=== PATIENT | male | born 1960 | race Caucasian/White ===

== ENCOUNTER 2021-08-25 01:37 | Emergency (ER) | payer OTHER, SELFPAY ==
[2021-08-25 01:44] VITALS: BMI 26.9
[2021-08-25 01:51] VITALS: BP 174/99; PULSE 71; RESP 16; O2SAT 96
--- NOTE | 2021-08-25 02:04 | ECG_ITS ---
[facility] Test Date: 2021-08-25 Pat Name: Ean Arce Department: Room: Gender: Male [employer]: : 1960 Requested By: Kimani Tolbert Order Number: [id number] Jose MD: Jt Barr M.D. Measurements Intervals [place] Rate: 67 P: 52 DC: 144 QRS: 23 QRSD: 94 T: 59 QT: 388 QTc: 411 Interpretive Statements SINUS RHYTHM No previous ECG available for comparison Electronically Signed On 08-25-2021 22:09:02 CDT by Jt Barr M.D. [id number]
--- NOTE | 2021-08-25 02:09 | CTR_ITS ---
PROCEDURE INFORMATION: Exam: CT Head Without Contrast Exam date and time: 08/25/2021 2:36 AM Age: 60 years old Clinical indication: Injury or trauma; Blunt trauma (contusions or hematomas); Without loss of consciousness; Injury details: Fall from 12 ft TECHNIQUE: Imaging protocol: Computed tomography of the head without contrast. Radiation optimization: All CT scans at this facility use at least one of these dose optimization techniques: automated exposure control; mA and/or kV adjustment per patient size (includes targeted exams where dose is matched to clinical indication); or iterative reconstruction. COMPARISON: No relevant prior studies available. RADIATION DOSE METRICS: Total DLP (mGy-cm): 875.97 FINDINGS: Brain: Normal. No hemorrhage. Unremarkable white matter. No mass effect. Cerebral ventricles: No ventriculomegaly. Paranasal sinuses: Visualized sinuses are unremarkable. No fluid levels. Mastoid air cells: Visualized mastoid air cells are well aerated. Bones/joints: Unremarkable. No acute fracture. Soft tissues: Unremarkable. CT/CT head wo con* [id number] IMPRESSION: No acute intracranial abnormality.
--- NOTE | 2021-08-25 02:09 | CTR_ITS ---
PROCEDURE INFORMATION: Exam: CT Chest With Contrast; Diagnostic Exam date and time: 08/25/2021 2:43 AM Age: 60 years old Clinical indication: Injury or trauma; Fall; Generalized; Blunt trauma (contusions or hematomas); Prior surgery; Surgery date: 6+ months; Surgery type: Hernia; Additional info: Fall 12 ft chest and belly pain TECHNIQUE: Imaging protocol: Diagnostic computed tomography of the chest with contrast. Radiation optimization: All CT scans at this facility use at least one of these dose optimization techniques: automated exposure control; mA and/or kV adjustment per patient size (includes targeted exams where dose is matched to clinical indication); or iterative reconstruction. Contrast material: OMNI 300; Contrast volume: 95 ml; Contrast route: INTRAVENOUS (IV); COMPARISON: CT cervical spin wo con* [id number] 08/25/2021 2:39 AM RADIATION DOSE METRICS: Total DLP (mGy-cm): 1785.99 FINDINGS: Lungs: Small calcified granuloma in the right middle lobe laterally. Mild patchy atelectasis in the right lower lobe and left lower lobe. Pleural spaces: No pneumothorax or pleural effusion. Heart: Heart size within normal limits. Lymph nodes: Calcified left paratracheal and subcarinal lymph nodes, consistent with longstanding granulomatous disease. Aorta: No thoracic aortic aneurysm identified. Bones/joints: Mild degenerative changes of the thoracic spine. Soft tissues: Unremarkable. PROCEDURE INFORMATION: Exam: CT Abdomen And Pelvis With Contrast Exam date and time: 08/25/2021 2:43 AM Age: 60 years old Clinical indication: Injury or trauma; Fall; Generalized; Blunt trauma (contusions or hematomas); Prior surgery; Surgery date: 6+ months; Surgery type: Hernia; Additional info: Fall 12 ft chest and belly pain TECHNIQUE: Imaging protocol: Computed tomography of the abdomen and pelvis with contrast. Radiation optimization: All CT scans at this facility use at least one of these dose optimization techniques: automated exposure control; mA and/or kV adjustment per patient size (includes targeted exams where dose is matched to clinical indication); or iterative reconstruction. Contrast material: OMNI 300; Contrast volume: 95 ml; Contrast route: INTRAVENOUS (IV); COMPARISON: CT cervical spin wo con* [id number] 08/25/2021 2:39 AM RADIATION DOSE METRICS: Total DLP (mGy-cm): 1785.99 FINDINGS: Liver: Unremarkable. Gallbladder and bile ducts: Unremarkable. Pancreas: The pancreatic tail and a large portion of the pancreatic body are absent. Spleen: Unremarkable. Adrenal glands: Unremarkable. Kidneys and ureters: Several cysts in the right kidney, largest 6 cm in the lower pole. Several cysts in the left kidney, largest 11.8 cm in the lower pole. No hydronephrosis on either side. Stomach and bowel: No bowel obstruction identified. Scattered colonic diverticula without identified diverticulitis. Appendix: A normal-appearing appendix is seen in the right lower quadrant. Intraperitoneal space: No free intraperitoneal air identified. Mild hemorrhagic free fluid in the pelvis. Moderate infiltrative hemorrhage in the mesentery in the right upper quadrant. Arteries: Unremarkable. No abdominal aortic aneurysm. Lymph nodes: Unremarkable. Urinary bladder: Unremarkable as visualized. Reproductive: Unremarkable as visualized. Bones/joints: Bilateral L5 pars interarticularis defects noted. Grade 2 anterolisthesis of L5 on S1. Marked degenerative disc disease at L5-S1. Soft tissues: Unremarkable. Other findings: There is a layer of hemorrhage in the right side of the retroperitoneum measuring approximately 2.1 cm in anteroposterior thickness anterior to the right psoas muscle on series 3, image 54. CT/CT chest abd pel w con* IMPRESSION: 1. No acute thoracic injury identified. IMPRESSION: 1. Moderate hemorrhage in the right side of the retroperitoneum. 2. Moderate infiltrative hemorrhage in the mesentery in the right upper quadrant. 3. Mild hemorrhagic free fluid in the pelvis.
--- NOTE | 2021-08-25 02:09 | CTR_ITS ---
PROCEDURE INFORMATION: Exam: CT Cervical Spine Without Contrast Exam date and time: 08/25/2021 2:39 AM Age: 60 years old Clinical indication: Injury or trauma; Fall; Blunt trauma; Additional info: Fall 12 ft TECHNIQUE: Imaging protocol: Computed tomography images of the cervical spine without contrast. Radiation optimization: All CT scans at this facility use at least one of these dose optimization techniques: automated exposure control; mA and/or kV adjustment per patient size (includes targeted exams where dose is matched to clinical indication); or iterative reconstruction. COMPARISON: CT head wo con* [id number] 08/25/2021 2:36 AM RADIATION DOSE METRICS: Total DLP (mGy-cm): 807.04 FINDINGS: Vertebrae: Moderate to severe degenerative disc disease changes are present at C3-C4. Mild degenerative disc disease changes are also present at C4-C5. No acute fracture is visualized. Mild retrolisthesis of C3 over C4 is noted. Soft tissues: Unremarkable. Lungs: Lung apices are normal. CT/CT cervical spin wo con* [id number] IMPRESSION: No cervical spine fracture.
[2021-08-25 02:16] LABS: Basophils % 0.1 %; Eosinophils % 0.1 %; Hematocrit 47.4 % (42.0-52.0); Hemoglobin 16.2 g/dL (11.7-16.6); Lymphocytes % 7.3 %; Mean Corpuscular HGB Conc 34.2 g/dL (30.0-36.0); Mean Corpuscular Hemoglobin 30.2 pg (28.0-34.0); Mean Corpuscular Volume 88.3 fl (80-94); Mean Platelet Volume 10.1 fL (7.4-10.4); Monocytes # 0.8 10^3/uL (0.2-0.9); Monocytes % 5.6 %; Neutrophils # 11.71 10^3/uL (1.8-7.7); Neutrophils % 86.7 %; Nucleated Red Blood Cells % 0 %; Platelet Count 231 10^3/cmm (130-400); Red Blood Count 5.37 10^6/uL (4.1-5.3); Red Cell Distribution Width 13.2 % (12.1-15.1); White Blood Count 13.5 10^3/uL (4.0-10.0)
[2021-08-25 02:26] LABS: Alanine Aminotransferase 15 U/L (0-41); Albumin Level 4.1 g/dL (3.5-5.2); Alkaline Phosphatase 70 IU/L (40-130); Blood Urea Nitrogen 23 mg/dL (8-23); Calcium 8.5 mg/dL (8.5-10.5); Carbon Dioxide 21 mmol/L (22-29); Chloride 102 mmol/L (98-107); Globulin 3.3 g/dL (1.3-4.6); Glomerular Filtration Rate 98.6 mL/min (90-130); Glucose 149 mg/dL (65-115); Osmolality Calculated 290 mOsm/kg (285-295); Sodium 137 mmol/L (136-145); Total Bilirubin 0.4 mg/dL (0.15-1.2); Total Protein 7.4 g/dL (6.6-8.7); Troponin(5th) Baseline 6 ng/L (0-15)
[2021-08-25 02:34] LABS: Lipase 2363 U/L (13-60)
[2021-08-25 02:35] LABS: Anion Gap 18.2 (5-19); Aspartate Amino Transferase 20 U/L (0-40); Potassium 4.2 mmol/L (3.5-5.1)
[2021-08-25 02:43] LABS: INR 0.94 (0.8-1.2); Partial Thromboplastin Time 27.9 SECONDS (23.9-36.7)
[2021-08-25] MEDS: iohexol 300 mg/mL 100 mL Btl IV (02:45)
[2021-08-25 03:04] VITALS: BP 173/105; PULSE 66; RESP 18; O2SAT 97
--- NOTE | 2021-08-25 03:05 | W.ED.ABDPA2 ---
HPI - Abdominal Pain General: Chief Complaint: Abdominal Pain Stated Complaint: ABD Pain Time Seen by Provider: 08/25/21 01:53 Source: patient History of Present Illness: 60-year-old male he notes that Wednesday, 2 days ago, he fell or rather slid off of a 12 foot roof. He did not have significant pain at that time. He did notes that yesterday, he developed generalized abdominal pain and nausea around 10 AM. He vomited once yesterday. Pain worsened overnight, so he comes in this morning with pain. Denies fever. Denies diarrhea. No blood in the stool. MD elicited complaint: abdominal pain Pertinent past history: none Onset (ago): hour(s) (20) Location: Diffuse Severity: moderate Quality: aching Radiation: none Migration to: no migration Exacerbating factors: vomiting and movement Relieving factors: nothing Associated Symptoms: Denies bloating, change in bowel habits, change in stool character, chills, coffee ground emesis, constipation, diarrhea, dyspepsia, dysuria, fever(s), hematochezia, hematuria, hematemesis, melena and vomiting Review of Systems Const: Denies: fever(s) or chills Eyes: Reports: change in vision ENMT: Denies: throat pain Card: Denies: chest pain or palpitations Resp: Denies: dyspnea or productive cough GI: Denies: vomiting, hematemesis, coffee ground emesis, diarrhea, constipation, bloating, change in bowel habits, change in stool character, hematochezia or melena : Denies: dysuria or hematuria Musc: Denies: neck pain or back pain Neuro: Denies: headache(s) Physical Exam Const: GENERAL APPEARANCE: cooperative and ill appearing (MILDLY) HENMT: COMMON NORMALS: normocephalic and Normal external nose present HEAD & SCALP: normocephalic FACE & SINUS: normal facial exam and face symmetric NOSE: Normal external nose present and Normal nares present Eye: COMMON NORMALS: Equal, round and reactive pupils present and EOMs intact bilaterally PUPIL: Yes Equal, round and reactive pupils present Neck/C-Spine: COMMON NORMALS: full ROM GENERAL: No tender Chest: Breast/axilla inspection: Yes no chest deformity, asymmetry, normal contours, no nodules, masses, tenderness OTHER: abrasion left chest Resp: COMMON NORMALS: normal respiratory effort, No use of accessory muscles and clear to auscultation bilaterally AUSCULTATION: clear to auscultation bilaterally Cardio: COMMON NORMALS: regular rate and regular rhythm RATE: regular rate RHYTHM: regular rhythm GI: PALPATION: Yes Firmness to palpation present (GI) and Yes Tenderness to palpation present (GI) (diffuse) Back/Pelvis: COMMON NORMALS: thoracic and lumbar spine normal to inspection Extremity: COMMON NORMALS: normal to inspection Neuro: JAIMIE COMA SCALE: document GCS findings Jaimie coma scale eye opening: Spontaneous Jaimie coma scale verbal response: Orientated Jaimie coma scale motor response: Obey commands [place] coma scale total score: 15 Course Vital Signs: Vital signs: Vital Signs Pulse Rate 66 08/25/21 03:04 Respiratory Rate 12 08/25/21 03:17 Blood Pressure 173/105 08/25/21 03:04 Pulse Oximetry 98 08/25/21 03:17 MDM - Abdominal Pain Medical Decision Making White blood cell count 13.5. Hemoglobin 16.2. Patient has been hypertensive. Blood pressure 151/110. Heart rate 73. Saturations 96% on room air. CTs of the head and cervical spine are negative. CT of the chest abdomen pelvis shows moderate hemorrhage in the right retroperitoneum as well as the right upper quadrant pancreas may be the source, as liver and spleen look clean. He has some mild hemorrhagic free fluid in the pelvis as well. Spoke with our surgeon here. Retroperitoneal bleeding with an elevated lipase of 2300 is concerning to him. We have no trauma service here. We spoke with Olinda Billings in [place], who will take in trauma transfer. Lab Data : 08/25/21 01:58 08/25/21 01:58 Labs/Radiology: Radiology Impressions Cervical Spine CT 08/25/21 02:09 IMPRESSION: No cervical spine fracture. Chest/Abdomen/Pelvis CT 08/25/21 02:09 IMPRESSION: 1. No acute thoracic injury identified. IMPRESSION: 1. Moderate hemorrhage in the right side of the retroperitoneum. 2. Moderate infiltrative hemorrhage in the mesentery in the right upper quadrant. 3. Mild hemorrhagic free fluid in the pelvis. Head CT 08/25/21 02:09 IMPRESSION: No acute intracranial abnormality. Laboratory Results WBC 13.5 10^3/uL (4.0-10.0) H 08/25/21 01:58 RBC 5.37 10^6/uL (4.1-5.3) H 08/25/21 01:58 Hgb 16.2 g/dL (11.7-16.6) 08/25/21 01:58 Hct 47.4 % (42.0-52.0) 08/25/21 01:58 MCV 88.3 fl (80-94) 08/25/21 01:58 MCH 30.2 pg (28.0-34.0) 08/25/21 01:58 MCHC 34.2 g/dL (30.0-36.0) 08/25/21 01:58 RDW 13.2 % (12.1-15.1) 08/25/21 01:58 Plt Count 231 10^3/cmm (130-400) 08/25/21 01:58 MPV 10.1 fL (7.4-10.4) 08/25/21 01:58 Neut % (Auto) 86.7 % 08/25/21 01:58 Lymph % (Auto) 7.3 % 08/25/21 01:58 [place] % (Auto) 5.6 % 08/25/21 01:58 Eos % (Auto) 0.1 % 08/25/21 01:58 Baso % (Auto) 0.1 % 08/25/21 01:58 Neut # (Auto) 11.71 10^3/uL (1.8-7.7) H 08/25/21 01:58 Lymph # (Auto) 1.0 10^3/uL (0.8-4.8) 08/25/21 01:58 [place] # (Auto) 0.8 10^3/uL (0.2-0.9) 08/25/21 01:58 Eos # (Auto) 0.0 10^3/uL (0.0-0.8) 08/25/21 01:58 Baso # (Auto) 0.0 10^3/uL (0.0-0.1) 08/25/21 01:58 Nucleated RBC % (auto) 0 % 08/25/21 01:58 Nucleated RBCs # 0.0 /100WBC 08/25/21 01:58 PT 12.90 SECONDS (12.1-14.9) 08/25/21 02:14 INR 0.94 (0.8-1.2) 08/25/21 02:14 APTT 27.9 SECONDS (23.9-36.7) 08/25/21 02:14 Sodium 137 mmol/L (136-145) 08/25/21 01:58 Potassium 4.2 mmol/L (3.5-5.1) 08/25/21 01:58 Chloride 102 mmol/L (98-107) 08/25/21 01:58 Carbon Dioxide 21 mmol/L (22-29) L 08/25/21 01:58 Anion Gap 18.2 (5-19) 08/25/21 01:58 BUN 23 mg/dL (8-23) 08/25/21 01:58 Creatinine 0.8 mg/dL (0.7-1.2) 08/25/21 01:58 GFR Calculation 98.6 mL/min (90-130) 08/25/21 01:58 Glucose 149 mg/dL (65-115) H 08/25/21 01:58 Calculated Osmolality 290 mOsm/kg (285-295) 08/25/21 01:58 Calcium 8.5 mg/dL (8.5-10.5) 08/25/21 01:58 Total Bilirubin 0.4 mg/dL (0.15-1.2) 08/25/21 01:58 AST 20 U/L (0-40) 08/25/21 01:58 ALT 15 U/L (0-41) 08/25/21 01:58 Alkaline Phosphatase 70 IU/L (40-130) 08/25/21 01:58 Troponin T Baseline 6 ng/L (0-15) 08/25/21 01:58 C-Reactive Protein 7.0 mg/L (0.0-4.9) H 08/25/21 01:58 Total Protein 7.4 g/dL (6.6-8.7) 08/25/21 01:58 Albumin 4.1 g/dL (3.5-5.2) 08/25/21 01:58 Globulin 3.3 g/dL (1.3-4.6) 08/25/21 01:58 Lipase 2363 U/L (13-60) H 08/25/21 01:58 Blood Type O Positive 08/25/21 02:14 Rho(D) Type Positive 08/25/21 02:14 Antibody Screen Negative 08/25/21 02:14 Discharge Plan Discharge Patient Disposition: Xfer Short-Term Hosp Clinical Impression: Traumatic retroperitoneal hemorrhage Condition: Serious Coding Level of Care Code ED Parimutuel T[employer]ier for [place] Fwd Exam Comprehensive
[2021-08-25] MEDS: ondansetron 2 mg/ML SDV 2 mL 4 MG IVP (03:16)
[2021-08-25 03:17] VITALS: RESP 12; O2SAT 98
[2021-08-25] MEDS: morphine 4 mg/mL SDV 1 mL IVP (03:17)
[2021-08-25 04:00] VITALS: BP 154/95; PULSE 74; RESP 18; O2SAT 97
[2021-08-25 04:16] VITALS: RESP 20; O2SAT 95
[2021-08-25 04:16] LABS: Add Urine Microscopic? YES; Bilirubin Urine Neg (Negative); Blood Urine 2+ (Negative); Glucose Urine UA Norm (Normal); Ketones Urine Negative (Negative); Leukocyte Esterase Urine Negative (Negative); Nitrate Urine Negative (Negative); Protein Urine Trace (Negative); Urine Appearance Clear (CLEAR); Urine Color Yellow (Yellow); Urobilinogen Urine Norm (Negative); pH Urine 6.5 (5-7)
[2021-08-25] MEDS: HYDROmorphone 1 mg/mL INJ 1 mL 0.5 MG IVP (04:16)
[2021-08-25 04:19] LABS: Add Urine Culture? No; Bacteria Urine TRACE /hpf; RBC Urine 0-4 /hpf (0-2); Squamous Epithelial Cell Urine 0-4 /hpf (0-5); WBC Urine 0-4 /hpf (0-5)
[2021-08-25 04:28] VITALS: BP 157/95; PULSE 74; RESP 18; O2SAT 97
== END 2021-08-25 04:33 | disposition short-term general hospital (02) ==
PROVIDERS: Emergency Provider Emergency Medicine
DX: S36.899A Unspecified injury of other intra-abdominal organs, initial encounter (principal); W13.2XXA Fall from, out of or through roof, initial encounter; I10 Essential (primary) hypertension
CPT/HCPCS: 70450; 71260; 72125; 74177; 80053; 81001; 83690; 84484; 85025; 85610; 85730; 86140; 86850; 86900; 93005; 96374; 96375; 99284; J1170; J2270; J2405; Q9967

== ENCOUNTER 2021-11-04 06:00 | Outpatient (RCR) | payer OTHER, SELFPAY | END 2021-11-30 23:59 | disposition home or self-care (01) | LOC: GPT 06:00 | PROVIDERS: Referring Provider Family Medicine; Visit Provider Family Medicine | DX: M54.12 Radiculopathy, cervical region (principal) | CPT/HCPCS: 97110; 97140; 97162 ==

== ENCOUNTER 2021-12-01 06:00 | Outpatient (RCR) | payer OTHER, SELFPAY | END 2021-12-27 23:42 | disposition home or self-care (01) | LOC: GPT 06:00 | PROVIDERS: Referring Provider Family Medicine; Visit Provider Family Medicine | DX: M54.12 Radiculopathy, cervical region (principal) | CPT/HCPCS: 97110; 97140; 97164 ==

== ENCOUNTER 2025-05-01 07:07 | Outpatient (RCR) | payer BC, SELFPAY | END 2025-05-02 23:59 | disposition home or self-care (01) | LOC: GPT 07:07 | PROVIDERS: Visit Provider Orthopaedic Surgery | DX: Z47.1 Aftercare following joint replacement surgery (principal); Z96.651 Presence of right artificial knee joint | CPT/HCPCS: 97110; 97140; 97161 ==